=== PATIENT | female | born 1990 | race Caucasian/White ===

== ENCOUNTER → 2018-07-04 | Outpatient (CLI) | payer OTHER ==
[2018-07-04] MEDS: METOPROLOL 100 MG TAB (09:35)
[2018-07-04] MEDS: IOHEXOL 100 ML (11:06)
[2018-07-04] MEDS: SOD CHLORIDE 0.9% 100 ML (11:06)
[2018-07-04] MEDS: METOPROLOL 5 MG INJ (11:10)
== END | disposition home or self-care (01) ==
LOC: C/S 08:48
DX: Z01.818 Encounter for other preprocedural examination (principal); R07.9 Chest pain, unspecified; R06.02 Shortness of breath
CPT/HCPCS: 75571; 75574